=== PATIENT | male | born 1990 | race Caucasian/White ===

== ENCOUNTER 2016-07-18 08:15 | Emergency (ER) | payer OTHER ==
[~2016-07-18] VITALS: Wt 98.0 kg
[~2016-07-18 08:15] MED LIST: IBUP800T25 PO
[2016-07-18] MEDS ORDERED: IBUPROFEN 800 MG TAB PO ONE (09:30)
--- NOTE | 2016-07-18 09:58 | RADRPT ---
PROCEDURE: Left knee series. CLINICAL INDICATION: Left knee pain TECHNIQUE: Three views of the left knee. COMPARISON: None available FINDINGS: There is normal mineralization and alignment of the left knee. No acute fracture or dislocation is seen. Joint spaces are well maintained. There is no evidence of osteophyte formation or erosion. No definite joint effusion is seen. The soft tissues are within normal limits. IMPRESSION: 1. Unremarkable left knee x-ray series. RPTAT: KK .Gato Garcia MD, Date Time Electronically viewed and signed by .Gato Garcia MD, on 07/18/2016 09:57 .B/
[2016-07-18] MEDS ORDERED: AMO500 PO (10:37)
[2016-07-18] MEDS ORDERED: IBUP800T25 PO (10:37)
[2016-07-18] MEDS ORDERED: KENC1 TOP (10:37)
--- NOTE | 2016-07-18 11:05 | ERD ---
ER Documentation Chief Complaint Date/Time DATE: 07/18/16 TIME: 10:58 Chief Complaint rash and ear pain x 1 week HPI 26-year-old male with no significant past medical history presents to the ED complaining of multiple complaints. States that his left ear started to hurt after having a dry cough and runny nose since 1 week ago. Denies any use of Q- tips. States that he hears muffled sounds with his left ear. States that he started to have a intermittent rash on his right shoulder and lower abdomen since 1 month ago. Reports that it was itchy and he has been scratching it. States that he has been applying hydrocortisone with slight relief of the symptoms. Also reports that he has chronic left knee pain 1 year ago and started recently carrying heavy things at work and hears a clicking sound to his left knee patient describes it as an achy type of sensation and states that it is on the anterior part of his knee. Denies any recent injuries.. Denies obtaining any x-rays to his left knee previously. Denies any fever, chills, abdominal pain, nausea, vomiting, diarrhea, shortness of breath. ROS All systems reviewed and are negative except as per history of present illness. Medications Home Meds Active Scripts Triamcinolone Acetonide (Triamcinolone Acetonide) 0.1% - 15 Gm Cream.gm., 1 APPLIC TOP BID, #1 TUB Prov:PRIYA MCKENNA PA-C 07/18/16 Amoxicillin* (Amoxicillin*) 500 Mg Cap, 500 MG PO TID for 7 Days, CAP Prov:PRIYA MCKENNA PA-C 07/18/16 Ibuprofen* (Motrin*) 800 Mg Tab, 800 MG PO Q6H Y for PAIN AND OR ELEVATED TEMP, #30 TAB take with food Prov:PRIYA MCKENNA PA-C 07/18/16 Ibuprofen* (Motrin*) 800 Mg Tab, 800 MG PO Q6, #14 TAB Prov:RAJEEV MORGAN PA-C 09/06/15 Allergies Allergies: Coded Allergies: No Known Allergies (Verified Allergy, Mild, 06/01/10) PMhx/Soc Medical and Surgical Hx: pt denies Medical Hx, pt denies Surgical Hx History of Surgery: No Anesthesia Reaction: No Hx Neurological Disorder: No Hx Respiratory Disorders: No Hx Cardiac Disorders: No Hx Psychiatric Problems: No Hx Miscellaneous Medical Probl: No Hx Alcohol Use: No Hx Substance Use: No Hx Tobacco Use: No Physical Exam Vitals Vital Signs Date Time Temp Pulse Resp B/P Pulse Ox O2 Delivery O2 Flow Rate FiO2 07/18/16 08:18 98.0 86 18 157/89 99 Physical Exam Const: [id number], well-nourished. In no acute distress. Head: Atraumatic, normocephalic Eyes: Normal Conjunctiva without injection. No purulent discharge. PERRLA. EOMI ENT: Normal external ear. Ear canal without erythema. Right tympanic membrane pearly lyle without effusion or bulging. Left bulging erythematous tympanic membrane with decreased light reflex. Nasal canal clear with normal turbinates. Moist oropharynx without tonsillar exudates. Non-erythematous pharynx. Uvula midline. No drooling. No trismus. Neck: No cervical midline tenderness. Full range of motion. No meningismus. No cervical lymphadenopathy. No JVD. Resp: Clear to auscultation bilaterally. No wheezing, rhonchi, rales, or crackles. No accessory muscle use. No retractions. Cardio: Regular rate and rhythm. No murmurs, rubs or gallops. Abd: Soft, non tender, non distended. Normal bowel sounds. No palpable masses. No rebound tenderness. No guarding. Negative McBurney's Point. Negative Altman's Sign. Skin: Normal skin turgor. No petechiae, purpura. Eczematous rash with lichenification noted on the right armpit and shoulder region and lower abdomen below the umbilicus. No surrounding erythema, edema, fluctuance, induration, bleeding noted. No purulent discharge. Back: No midline tenderness. No CVA tenderness. Ext: No cyanosis, or edema. Distal pulses intact bilaterally. Tenderness to palpation of the left patella. Full range of motion of the bilateral upper and lower extremities. Popliteal pulses intact bilaterally. Neur: Awake and alert. Normal gait. Normal coordination. Cranial Nerves II- VII intact. Normal finger to nose. Muscle strength 5/5. Sensation intact. Psych: Normal Mood and Affect Results 24 hrs Current Medications Medications (Trade) Dose Ordered Sig/Mirela Route PRN Reason Start Time Stop Time Status Last Admin Dose Admin Ibuprofen (Motrin) 800 mg ONCE ONCE PO 07/18/16 09:30 07/18/16 09:31 DC 07/18/16 09:17 Procedures/MDM 26-year-old male with no significant past medical history presents to the ED complaining of left knee pain, left ear pain, a rash. Patient is afebrile and nontoxic-appearing. Patient has normal vital signs. Patient's rash is consistent with a slight eczematous rash. Patient could benefit from triamcinolone. Other differential diagnosis include but is not limited to allergic contact dermatitis, urticaria, insect bites, cutaneous candidiasis, eczema, scabies, tinea infection, erythema multiforme, psoriasis. Low suspicion for SJS/TEN, sepsis, cellulitis, necrotizing fascitis, gangrene, meningococcemia or other emergent conditions. Patient's physical exam is consistent with otitis media. Patient does not have tenderness to palpation of tragus or mastoid. Low suspicion for otitis externa or mastoiditis. Patient's physical exam include lungs which were clear to auscultation and a normal pulse oximetry. Patient is speaking in full sentences. There is a low suspicion for pneumonia, epiglottitis, croup, viral/ strep pharyngitis, sinusitis, peritonsillar abscess, retropharyngeal abscess, meningitis, sepsis, acute abdomen or other emergent conditions. Patient's left knee pain is likely chronic however recently hearing and feeling clicking noises in his left knee, a left knee x-ray was ordered to further evaluate patient. Patient symptoms have improved with ibuprofen here in the ED. PROCEDURE: Left knee series. CLINICAL INDICATION: Left knee pain TECHNIQUE: Three views of the left knee. COMPARISON: None available FINDINGS: There is normal mineralization and alignment of the left knee. No acute fracture or dislocation is seen. Joint spaces are well maintained. There is no evidence of osteophyte formation or erosion. No definite joint effusion is seen. The soft tissues are within normal limits. IMPRESSION: 1. Unremarkable left knee x-ray series. Patient denied wanting an [place]o wrap at this time. States that he has been at home. Patient was ambulating here in the ED without difficulty. Patient's extremity symptoms have stabilized while they have been evaluated in the department and are appropriate for outpatient follow up. No evidence of fractures, dislocations, compartment syndrome, neurologic injury, vascular injury, open joint, open fracture, tendon laceration, septic arthritis, osteomyelitis, DVT, foreign body, or other emergent conditions. Patient's pain still persists, I instructed him to follow-up with an orthopedic physician for further evaluation with an MRI. Discharge medications: Ibuprofen Follow up with primary care physician in 1-2 days. Instructed patient to return to the ED sooner for any worsening symptoms. Patient's questions were answered. Patient understood and agreed with discharge plan. Patient discharged stable. Departure Diagnosis: Primary Impression: Rash and nonspecific skin eruption Additional Impressions: Left ear pain Knee pain, left Chronicity: chronic Qualified Code: M25.562 - Chronic pain of left knee Condition: Stable Patient Instructions: Self-Care for Skin Rashes, Knee Sprain, Otitis Media, Abx Tx (Adult) Referrals: [facility] YOU HAVE RECEIVED A MEDICAL SCREENING EXAM AND THE RESULTS INDICATE THAT YOU DO NOT HAVE A CONDITION THAT REQUIRES URGENT TREATMENT IN THE EMERGENCY DEPARTMENT. FURTHER EVALUATION AND TREATMENT OF YOUR CONDITION CAN WAIT UNTIL YOU ARE SEEN IN YOUR DOCTORS OFFICE WITHIN THE NEXT 1-2 DAYS. IT IS YOUR RESPONSIBILITY TO MAKE AN APPOINTMENT FOR FOLOW-UP CARE. IF YOU HAVE A PRIMARY DOCTOR --you should call your primary doctor and schedule an appointment IF YOU DO NOT HAVE A PRIMARY DOCTOR YOU CAN CALL OUR PHYSICIAN REFERRAL HOTLINE AT IF YOU CAN NOT AFFORD TO SEE A PHYSICIAN YOU CAN CHOSE FROM THE FOLLOWING [facility] [address] [facility]. [facility] [address] [facility] [facility] [address] [address] [facility]. [facility] [address] [facility]. [facility]. [address] [facility]. [facility] YOU HAVE RECEIVED A MEDICAL SCREENING EXAM AND THE RESULTS INDICATE THAT YOU DO NOT HAVE A CONDITION THAT REQUIRES URGENT TREATMENT IN THE EMERGENCY DEPARTMENT. FURTHER EVALUATION AND TREATMENT OF YOUR CONDITION CAN WAIT UNTIL YOU ARE SEEN IN YOUR DOCTORS OFFICE WITHIN THE NEXT 1-2 DAYS. IT IS YOUR RESPONSIBILITY TO MAKE AN APPOINTMENT FOR FOLOW-UP CARE. IF YOU HAVE A PRIMARY DOCTOR --you should call your primary doctor and schedule and appointment IF YOU DO NOT HAVE A PRIMARY DOCTOR YOU CAN CALL OUR PHYSICIAN REFERRAL HOTLINE AT . IF YOU CAN NOT AFFORD TO SEE A PHYSICIAN YOU CAN CHOSE FROM THE FOLLOWING [facility] IN[facility]: [facility] [address] [place] [address] [facility] [address] [place] [address] [facility] [address] [place] [address] [facility] Urgent Care 7 a.m.- 11 p.m. 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 Return to this facility if you are not improving as expected. PRIYA MCKENNA PA-C Jul 18, 2016 11:04
== END 2016-07-18 10:49 | disposition home or self-care (01) ==
LOC: FTE 08:15
DX: R21 Rash and other nonspecific skin eruption (principal); H92.02 Otalgia, left ear; M25.562 Pain in left knee
CPT/HCPCS: 73562; Z7502; Z7610